=== PATIENT | female | born 1985 ===

== ENCOUNTER 2017-05-15 12:56 | Observation (INO) | payer OTHER ==
--- NOTE | 2017-05-15 13:39 | ED PDOC ---
HPI: CCC, URI, Sore Throat Time Seen by Provider: 05/15/17 13:29 Chief Complaint (Nursing): Cough, Cold, Congestion Chief Complaint (Provider): Cough History Per: Patient History/Exam Limitations: no limitations Associated Symptoms: Cough. denies: Fever, Sputum Additional Complaint(s): Helene Newsome is a 32 y/o female presenting to the ER on 05/15/2017 with complaints of a cough for five weeks. Patient reports been evaluated twice by Dr. Merino at an Urgent [facility] and at [facility]. Patient has been on four courses of antibiotics including Azithromycin. At that time, she was diagnosed with bronchitis. However, her symptoms have not changed, prompting her to seek medial evaluation today. She denies any associated fever or sputum. Past Medical History Reviewed: Historical Data, Nursing Documentation, Vital Signs Vital Signs: Last Vital Signs Temp 98.1 F 05/15/17 13:19 Pulse 68 05/15/17 13:19 Resp 18 05/15/17 13:19 BP 116/62 05/15/17 13:19 Pulse Ox 100 05/15/17 14:51 - Medical History PMH: Bronchitis, Migraine - Surgical History Surgical History: Cholecystectomy - Family History Family History: States: Unknown Family Hx - Social History Current smoker - smoking cessation education provided: No Alcohol: None Drugs: Denies - Home Medications Home Medications: Ambulatory Orders Medication Instructions Recorded Albuterol Sulfate [Proair Hfa] 2 puff IH Q4H PRN 05/15/17 Montelukast [Singulair] 10 mg PO HS 05/15/17 - Allergies Allergies/Adverse Reactions: Allergies Allergy/AdvReac Type Severity Reaction Status Date / Time iodine Allergy SWELLING Verified 05/15/17 13:18 morphine AdvReac ITCHING Verified 05/15/17 13:18 Review of Systems ROS Statement: Except As Marked, All Systems Reviewed And Found Negative Constitutional: Negative for: Fever Respiratory: Positive for: Cough. Negative for: Sputum Physical Exam - Reviewed Nursing Documentation Reviewed: Yes Vital Signs Reviewed: Yes - Physical Exam Appears: Positive for: Non-toxic, No Acute Distress Head Exam: Positive for: ATRAUMATIC, NORMOCEPHALIC Skin: Positive for: Normal Color. Negative for: Rash Eye Exam: Positive for: Normal appearance, EOMI, PERRL ENT: Positive for: Normal ENT Inspection. Negative for: Pharyngeal Erythema, Tonsillar Exudate, Tonsillar Swelling Neck: Positive for: Normal, Painless ROM, Supple Cardiovascular/Chest: Positive for: Regular Rate, Rhythm. Negative for: Murmur Respiratory: Positive for: Normal Breath Sounds. Negative for: Respiratory Distress Extremity: Positive for: Normal ROM. Negative for: Deformity, Swelling Neurologic/Psych: Positive for: Alert, Oriented. Negative for: Motor/Sensory Deficits - ECG O2 Sat by Pulse Oximetry: 100 Medical Decision Making Medical Decision Makin:29 Initial Impression- 32 y/o female with dry cough Initial Plan * Urine Preg * CXR 1445 - Discussed with Dr. Merino. Pt will be admitted for observation for out- patient failure. Dr. Merino would like IV levaquin. CXR results discussed. Documented by Moriah Arana, acting as a scribe for Ewa Lorenzo PA-C All medical record entries made by the Scribe were at my direction and personally dictated by me. I have reviewed the chart and agree that the record accurately reflects my personal performance of the history, physical exam, medical decision making, and the department course for this patient. I have also personally directed, reviewed, and agree with the discharge instructions and disposition. Disposition - Clinical Impression Clinical Impression: Acute bronchitis - Patient ED Disposition Is Patient to be Admitted: Yes - Disposition Disposition Time: 15:08 Condition: STABLE - Pt Status Changed To: Hospital Disposition Of: Observation - Admit Certification Admit to Inpatient:: M/S - POA Present On Arrival: None
--- NOTE | 2017-05-15 14:21 | RAD ---
HISTORY: cough, no improvement with antibiotics COMPARISON: No prior. TECHNIQUE: Chest PA and lateral FINDINGS: LUNGS: There is pulmonary hyperinflation and peribronchial thickening with streaky opacities in both lungs. No lobar pneumonia. PLEURA: No significant pleural effusion identified. No pneumothorax apparent. CARDIOVASCULAR: Normal. OSSEOUS STRUCTURES: No significant abnormalities. VISUALIZED UPPER ABDOMEN: Normal. OTHER FINDINGS: None. IMPRESSION: Findings are most compatible with reactive small airway disease/ viral bronchitis. No lobar pneumonia.
[2017-05-15] MEDS ORDERED: levoFLOXacin 250 mg in D5W 250 MG/50 ML BAG IVPB SCH (14:45)
[2017-05-15] MEDS ORDERED: Albuterol 0.083% Inhal Sol (2.5 mg/3 mL) UD INH PRN (14:46)
[2017-05-15 15:28] LABS: BASO % 0.9 % (0.0-2.0); EOS # 0.1 K/uL (0.0-0.7); EOS % 1.2 % (0.0-4.0); HEMOGLOBIN 12.2 g/dL (12.0-16.0); LYMPH # 1.8 K/uL (1.0-4.3); MEAN CORPUSCULAR HEMOGLOBIN 24.2 pg (27.0-31.0); MEAN CORPUSCULAR HGB CONC 32.3 g/dL (33.0-37.0); MEAN PLATELET VOLUME 8.8 fl (7.2-11.7); MONO # 0.4 K/uL (0.0-0.8); MONO % 6.4 % (0.0-10.0); NEUT # 3.3 K/uL (1.8-7.0); NEUT % 58.5 % (50.0-75.0); NRBC % 0.1 % (0.0-0.0); RBC 5.03 Mil/uL (3.80-5.20); RED CELL DISTRIBUTION WIDTH 17.1 % (11.5-14.5); WHITE BLOOD COUNT 5.6 K/uL (4.8-10.8)
[2017-05-15 15:35] LABS: MEAN CELL VOLUME 74.9 fl (81.0-99.0)
[2017-05-15 15:37] LABS: ALB/GLOB RATIO 1.3 (1.0-2.1); ALBUMIN 4.5 g/dL (3.5-5.0); ALT/SGPT 44 U/L (9-52); AST/SGOT 27 U/L (14-36); BLOOD UREA NITROGEN 10 mg/dl (7-17); CALCIUM 9.3 mg/dL (8.4-10.2); GFR AFRICAN-AMERICAN > 60; GFR NON-AFRICAN AMERICAN > 60
[2017-05-15 19:44] LABS: ABG ALLEN TEST YES; ARTERIAL BLOOD GAS HCO3 22.9 mmol/L (21-28); ARTERIAL BLOOD GAS HEMOGLOBIN 12.7 g/dL (11.7-17.4); ARTERIAL BLOOD GAS O2 CONTENT 17.1 ML/dL (15-23); ARTERIAL BLOOD GAS O2 SAT 100.7 % (95-98); ARTERIAL BLOOD GAS PCO2 35 mm/Hg (35-45); ARTERIAL BLOOD GAS PO2 95 mm/Hg (80-100); ARTERIAL BLOOD GAS TCO2 22.8 mmol/L (22-28)
[2017-05-15] MEDS: Albuterol 0.083% Inhal Sol (2.5 mg/3 mL) UD INH SCH (20:14)
[2017-05-16] MEDS: Albuterol 0.083% Inhal Sol (2.5 mg/3 mL) UD INH SCH ×2 (01:02→07:22)
[2017-05-16] MEDS: methylPREDNISolone 80 MG in Sodium Chloride 0.9% 50 ML IV SCH ×2 (01:03→10:34)
[2017-05-16 07:47] VITALS: BP 104/67; PULSE 67; RESP 20; TEMP 98.3; O2SAT 99
--- NOTE | 2017-05-16 08:21 | CP.PCM.HP ---
History of Present Illness - History of Present Illness History of Present Illness: COUGH WITH SHORTNESS OF BREATH AND EXERCISE INTOLERANCE X 5 WEEKS AFTER GETTING A NEW DOG. WAS SEEN IN THE OFFICE AND AT AN URGICENTER,BUT HAS FAILED OUTPT THERAPY UNABLE TO EXPECTORATE SPUTUM WAS EVALUATED BY AN MOTION PICTURE SET GRIP AND TOLD TO HAVE ASTHMA AND DOG ALLERGY Present on Admission - Present on Admission Any Indicators Present on Admission: No History of DVT/PE: No History of Uncontrolled Diabetes: No Urinary Catheter: No Decubitus Ulcer Present: No History Surgical Site Infection Following: None Review of Systems - Cardiovascular Cardiovascular: Dyspnea, Dyspnea on Exertion - Respiratory Respiratory: Cough, Dyspnea on Exertion, Wheezing Past Patient History - Past Medical History & Family History Past Medical History?: Yes - Past Social History Smoking Status: Never Smoked - PULMONARY Hx Bronchitis: Yes - NEUROLOGICAL Hx Migraine: Yes - HEMATOLOGICAL/ONCOLOGICAL Hx AIDS: No Hx Human Immunodeficiency Virus (HIV): No - MUSCULOSKELETAL/RHEUMATOLOGICAL Hx Falls: No - PSYCHIATRIC Hx Substance Use: No - SURGICAL HISTORY Hx Cholecystectomy: Yes - ANESTHESIA Hx Anesthesia: Yes Hx Anesthesia Reactions: No Meds Allergies/Adverse Reactions: Allergies Allergy/AdvReac Type Severity Reaction Status Date / Time iodine Allergy SWELLING Verified 05/15/17 13:18 morphine AdvReac ITCHING Verified 05/15/17 13:18 Physical Exam - Constitutional Appears: No Acute Distress - Head Exam Head Exam: ATRAUMATIC, NORMAL INSPECTION, NORMOCEPHALIC - Eye Exam Eye Exam: EOMI, Normal appearance, PERRL Pupil Exam: NORMAL ACCOMODATION, PERRL - ENT Exam ENT Exam: Mucous Membranes Moist, Normal Exam - Neck Exam Neck exam: Positive for: Normal Inspection - Respiratory Exam Respiratory Exam: Decreased Breath Sounds, Wheezes, NORMAL BREATHING PATTERN - Cardiovascular Exam Cardiovascular Exam: REGULAR RHYTHM - GI/Abdominal Exam GI & Abdominal Exam: Normal Bowel Sounds, Soft. absent: Tenderness - Rectal Exam Rectal Exam: NORMAL INSPECTION - Extremities Exam Extremities exam: Positive for: normal inspection - Back Exam Back exam: NORMAL INSPECTION - Neurological Exam Neurological exam: Alert, CN II-XII Intact, Normal Gait, Oriented x3, Reflexes Normal - Psychiatric Exam Psychiatric exam: Normal Affect, Normal Mood - Skin Skin Exam: Dry, Intact, Normal Color, Warm Results - Vital Signs Recent Vital Signs: Last Vital Signs Temp 98.3 F 05/16/17 07:47 Pulse 67 07/06/17 07:47 Resp 20 05/16/17 07:47 BP 104/67 05/16/17 07:47 Pulse Ox 99 05/16/17 07:47 - Labs Result Diagrams: 05/15/17 15:00 05/15/17 14:48 Labs: Laboratory Results - last 24 hr 05/15/17 05/15/17 15:00 19:38 WBC 5.6 D RBC 5.03 Hgb 12.2 Hct 37.6 MCV 74.9 L D MCH 24.2 L MCHC 32.3 L RDW 17.1 H Plt Count 282 MPV 8.8 Neut % (Auto) 58.5 Lymph % (Auto) 33.0 [place] % (Auto) 6.4 Eos % (Auto) 1.2 Baso % (Auto) 0.9 Neut # 3.3 Lymph # 1.8 [place] # 0.4 Eos # 0.1 Baso # 0.0 pCO2 35 pO2 95 HCO3 22.9 ABG pH 7.40 ABG Total CO2 22.8 ABG O2 Saturation 100.7 H ABG O2 Content 17.1 ABG Base Excess -2.5 L ABG Hemoglobin 12.7 ABG Carboxyhemoglobin 3.0 H POC ABG HHb (Measured) -0.7 L ABG Methemoglobin 2.4 ABG O2 Capacity 17.0 Jemal Test Yes A-a O2 Difference 11.0 Hgb O2 Saturation 95.3 FiO2 21.0 - Imaging and Cardiology Chest x-ray Additional comment: COMPARTIBLE WITH [employer] Assessment & Plan - Assessment and Plan (Free Text) Assessment: ACUTE ASTHMA OUTPT TREATMENT FAILURE HX OF MIGRAINE HEADACHES HX OF DOG ALLERGY Plan: ADMITTED FOR 24 HR OBSERVATION CONTINUE STEROIDS AND SINGULAIR THERAPY OUT PT D/C HOME TODAY PT TO GET RID OF DOG
--- NOTE | 2017-05-16 08:29 | CP.PCM.DIS ---
Provider - Provider Date of Admission: 05/15/17 14:55 Attending physician: Pascual Ramires MD Primary care physician: Pascual Ramires MD Time Spent in preparation of Discharge (in minutes): 35 Diagnosis - Discharge Diagnosis (1) Acute asthma flare Status: Acute (2) Acute asthmatic bronchitis Status: Acute (3) Migraine Status: Acute Hospital Course - Lab Results Lab Results: Most Recent Lab Values WBC 5.6 K/uL (4.8-10.8) D 05/15/17 15:00 RBC 5.03 Mil/uL (3.80-5.20) 05/15/17 15:00 Hgb 12.2 g/dL (12.0-16.0) 05/15/17 15:00 Hct 37.6 % (34.0-47.0) 05/15/17 15:00 MCV 74.9 fl (81.0-99.0) L D 05/15/17 15:00 MCH 24.2 pg (27.0-31.0) L 05/15/17 15:00 MCHC 32.3 g/dL (33.0-37.0) L 05/15/17 15:00 RDW 17.1 % (11.5-14.5) H 05/15/17 15:00 Plt Count 282 K/uL (130-400) 05/15/17 15:00 MPV 8.8 fl (7.2-11.7) 05/15/17 15:00 Neut % (Auto) 58.5 % (50.0-75.0) 05/15/17 15:00 Lymph % (Auto) 33.0 % (20.0-40.0) 05/15/17 15:00 [place] % (Auto) 6.4 % (0.0-10.0) 05/15/17 15:00 Eos % (Auto) 1.2 % (0.0-4.0) 05/15/17 15:00 Baso % (Auto) 0.9 % (0.0-2.0) 05/15/17 15:00 Neut # 3.3 K/uL (1.8-7.0) 05/15/17 15:00 Lymph # 1.8 K/uL (1.0-4.3) 05/15/17 15:00 [place] # 0.4 K/uL (0.0-0.8) 05/15/17 15:00 Eos # 0.1 K/uL (0.0-0.7) 05/15/17 15:00 Baso # 0.0 K/uL (0.0-0.2) 05/15/17 15:00 pCO2 35 mm/Hg (35-45) 05/15/17 19:38 pO2 95 mm/Hg (80-100) 05/15/17 19:38 HCO3 22.9 mmol/L (21-28) 05/15/17 19:38 ABG pH 7.40 (7.35-7.45) 05/15/17 19:38 ABG Total CO2 22.8 mmol/L (22-28) 05/15/17 19:38 ABG O2 Saturation 100.7 % (95-98) H 05/15/17 19:38 ABG O2 Content 17.1 ML/dL (15-23) 05/15/17 19:38 ABG Base Excess -2.5 mmol/L (-2.0-3.0) L 05/15/17 19:38 ABG Hemoglobin 12.7 g/dL (11.7-17.4) 05/15/17 19:38 ABG Carboxyhemoglobin 3.0 % (0.5-1.5) H 05/15/17 19:38 POC ABG HHb (Measured) -0.7 % (0.0-5.0) L 05/15/17 19:38 ABG Methemoglobin 2.4 % (0.0-3.0) 05/15/17 19:38 ABG O2 Capacity 17.0 mL/dL (16-24) 05/15/17 19:38 Jemal Test Yes 05/15/17 19:38 A-a O2 Difference 11.0 mm/Hg 05/15/17 19:38 Hgb O2 Saturation 95.3 % (95.0-98.0) 05/15/17 19:38 FiO2 21.0 % 05/15/17 19:38 Sodium 140 mmol/l (132-148) 05/15/17 14:48 Potassium 3.7 MMOL/L (3.6-5.0) 05/15/17 14:48 Chloride 107 mmol/L (98-107) 05/15/17 14:48 Carbon Dioxide 23 mmol/L (22-30) 05/15/17 14:48 Anion Gap 14 (10-20) 05/15/17 14:48 BUN 10 mg/dl (7-17) 05/15/17 14:48 Creatinine 0.7 mg/dL (0.7-1.2) 05/15/17 14:48 Est GFR ( Amer) > 60 05/15/17 14:48 Est GFR (Non-Af Amer) > 60 05/15/17 14:48 Random Glucose 76 mg/dL (65-105) 05/15/17 14:48 Calcium 9.3 mg/dL (8.4-10.2) 05/15/17 14:48 Total Bilirubin 0.7 mg/dl (0.2-1.3) 05/15/17 14:48 AST 27 U/L (14-36) 05/15/17 14:48 ALT 44 U/L (9-52) 05/15/17 14:48 Alkaline Phosphatase 68 U/L (38-126) 05/15/17 14:48 Total Protein 7.9 G/DL (6.3-8.2) 05/15/17 14:48 Albumin 4.5 g/dL (3.5-5.0) 05/15/17 14:48 Globulin 3.4 gm/dL (2.2-3.9) 05/15/17 14:48 Albumin/Globulin Ratio 1.3 (1.0-2.1) 05/15/17 14:48 - Hospital Course Hospital Course: SHORTNESS OF BREATH AND COUGH RESOLVED WITH THERAPY Discharge Exam - Head Exam Head Exam: ATRAUMATIC, NORMAL INSPECTION, NORMOCEPHALIC - Eye Exam Eye Exam: EOMI, Normal appearance, PERRL Pupil Exam: NORMAL ACCOMODATION, PERRL - GI/Abdominal Exam GI & Abdominal Exam: Normal Bowel Sounds - Rectal Exam Rectal Exam: NORMAL INSPECTION - Neurological Exam Neurological exam: Alert, CN II-XII Intact, Normal Gait, Oriented x3, Reflexes Normal - Psychiatric Exam Psychiatric exam: Normal Affect, Normal Mood - Skin Skin Exam: Dry, Intact, Normal Color, Warm Discharge Plan - Follow Up Plan Condition: STABLE Disposition: HOME/ ROUTINE Patient education suggested?: Yes Additional Instructions: CONTINUE SINGULAIR/PREDNISONE AND ALBUTEROL RX ADVISED TO GET RID OF PETS FOLLOW UP WITH DR RAMIRES Referrals: Pascual Ramires MD [Primary Care Provider] -
[2017-05-16] MEDS ORDERED: levoFLOXacin 500 mg in D5W 500 MG/100 ML BAG IVPB SCH (09:00)
== END 2017-05-16 14:12 | disposition home or self-care (01) ==
LOC: H.ER 12:56 → H.ERHOLD 14:55 → H.MEDSURG1 17:00
PROVIDERS: ADMIT Internal Medicine Pulmonary Disease; ATTEND Internal Medicine Pulmonary Disease
DX: J45.901 Unspecified asthma with (acute) exacerbation (principal); Z88.5 Allergy status to narcotic agent; Z91.041 Radiographic dye allergy status; G43.909 Migraine, unspecified, not intractable, without status migrainosus; J20.9 Acute bronchitis, unspecified